=== PATIENT | female | born 2000 | race Caucasian/White ===

== ENCOUNTER 2023-11-30 20:19 | Emergency (ER) | payer BC, SELFPAY ==
[2023-11-30 20:27] VITALS: BP 154/87; PULSE 88; TEMP 36.7; O2SAT 100; BMI 34.9
--- NOTE | 2023-11-30 20:32 | PC.NURSE ---
Puncture wound to right outer knee, small amount of bleeding, area cleansed with chlorhexidine.
--- NOTE | 2023-11-30 21:01 | ED_ITS ---
HPI - Animal Bite General Chief Complaint: Animal Bite Stated Complaint: DOG BITE Time Seen by Provider: 11/30/23 20:56 Source: patient Mode of arrival: walk-in Limitations: no limitations History of Present Illness HPI narrative: bitten by family dog right thigh. States she mistakenly stepped on the dog while it was sleeping. States dog in family for 5 years and has never bitten anyone. Patient has small incision right thigh. No other injury or complaint Related Data Home Medications ?Medication ?Instructions ?Recorded ?Confirmed No Known Home Medications 11/30/23 11/30/23 Allergies Allergy/AdvReac Type Severity Reaction Status Date / Time No Known Drug Allergies Allergy Verified 11/30/23 20:27 Review of Systems ROS Status of ROS 10 or more systems reviewed and unremark able except as noted in history and below Exam Constitutional Vital Signs, click to edit/add: Last Vital Signs Temp 98.0 F 11/30/23 20:27 Pulse 88 11/30/23 20:27 Resp 18 11/30/23 20:27 BP 154/87 H 11/30/23 20:27 Pulse Ox 100 11/30/23 20:27 O2 Del Method Room Air 11/30/23 20:27 Common normals: no apparent distress, average body habitus, oriented x3, no limitations, healthy appearing, alert and well nourished [facility] Common normals: normocephalic and head/scalp atraumatic Respiratory Common normals: normal respiratory effort, no retractions and no use of accessory muscles Cardio Common normals: regular rate, regular rhythm and S1 normal heart sound Extremity Other: 1.5cm superficial lac right thigh Neuro Common normals: oriented x3, CN's II-XII intact bilaterally, moves all ex tremities, no focal motor deficits and no sensory deficits noted Psych Appearance: grossly normal Course Vital Signs Vital signs: Vital Signs Temperature 98.0 F 11/30/23 20:27 Pulse Rate 88 11/30/23 20:27 Respiratory Rate 18 11/30/23 20:27 Blood Pressure 154/87 H 11/30/23 20:27 Pulse Oximetry 100 11/30/23 20:27 Oxygen Delivery Method Room Air 11/30/23 20:27 Temperature 98.0 F 11/30/23 20:27 Pulse Rate 88 11/30/23 20:27 Respiratory Rate 18 11/30/23 20:27 Blood Pressure 154/87 H 11/30/23 20:27 Pulse Oximetry 100 11/30/23 20:27 Oxygen Delivery Method Room Air 11/30/23 20:27 MDM - Animal Bite MDM Narrative Medical decision making narrative: presents with dog bite by family dog. minor bite. closed with 2 stitches. Tetanus administered and patient given dose of Augmentin. Discharged home Discharge Plan Discharge Stand Alone Forms: Portal Instructions Chief Complaint: Animal Bite Clinical Impression: Dog bite Patient Disposition: Home, Self-Care Prescriptions / Home Meds: No Action No Known Home Medications Print Language: Urdu Instructions: Animal Bite (ED) Additional Instructions: have wound rechecked in 2-3 days and stitches removed in 10 Referrals: LAKHWINDER MALDONADO [Primary Care Provider] - 1 week Procedures ED Procedure Instructions Procedures Procedures: 12mm dog bite right thigh. 1% lido as a local. cleaned with betadine and rinsed with saline. Closed with # 2 3.0 nylon stitches. No complications
[2023-11-30] MEDS: ADACEL DIPH,PERTUSS(ACELL),TET VAC/PF 0.5 ML ADULT SYRINGE IM (21:31)
[2023-11-30] MEDS: AMOXICILLIN/POTASSIUM CLAV 1 TAB TABLET PO (21:31)
[2023-11-30] MEDS: LIDOCAINE HCL 1% 100 MG/10 ML MDV INJ (21:33)
[2023-11-30 21:40] VITALS: BP 129/81; PULSE 89; O2SAT 99
== END 2023-11-30 21:40 | disposition home or self-care (01) ==
PROVIDERS: Emergency Provider Internal Medicine; PCP Family Medicine
DX: S71.151A Open bite, right thigh, initial encounter (principal); Z23 Encounter for immunization; W54.0XXA Bitten by dog, initial encounter
CPT/HCPCS: 12001; 90471; 90715; 99283